=== PATIENT | male | born 2000 | race Hispanic/Latino ===

== ENCOUNTER 2021-06-22 15:16 | Emergency (ER) | payer OTHER ==
[~2021-06-22] VITALS: Ht 167.6 cm; Wt 68.2 kg
[2021-06-22] MEDS ORDERED: ACETAMINOPHEN TAB 650MG DOSE (2X325MG) PO ONE (18:15)
[2021-06-22 20:48] VITALS: BP 138/68
== END 2021-06-22 19:15 | disposition home or self-care (01) ==
LOC: M ED 15:16
DX: J06.9 Acute upper respiratory infection, unspecified (principal); F17.200 Nicotine dependence, unspecified, uncomplicated
CPT/HCPCS: 87880; 99283; U0003